=== PATIENT | male | born 1940 | race African-American/Black ===

== ENCOUNTER 2017-08-13 20:27 | Emergency (ER) | payer MEDICARE, OTHER ==
[~2017-08-13 20:27] MED LIST: ASPI81TA23 PO; CHLO25TA2 PO; DICL1GEL7 TOPICAL; LOSA100T PO; METO1TAB9 PO; TRIA.1%T TOPICAL; TRIAM.1%T TOPICAL; VIAG100T PO
[2017-08-13 20:37] VITALS: BP 148/83; PULSE 72; RESP 20; TEMP 98.3; O2SAT 97
[2017-08-13] MEDS ORDERED: FLUORESCEIN SOD 1 MG STRIP LEFT EYE ONE (21:30)
[2017-08-13] MEDS ORDERED: PROPARACAINE HCL 0.5% OPHT SOLN 15 ML BTL LEFT EYE ONE (21:30)
--- NOTE | 2017-08-13 21:35 | PD ---
HPI Chief Complaint: Foreign Body Time Seen by Provider: 21:33 Travel History International Travel<30 days: No Contact w/Intl Traveler<30days: No Traveled to known affect area: No History of Present Illness HPI 76-year-old male patient with no significant past medical issues, presents to the ER today because he states that he was working on his fence today when he felt something fly into his left eye. He has a foreign body sensation in the left eye since then. He denies any vision changes or any other issues. Modifying Factors: None Associated Signs & Symptoms: Left eye foreign body sensation Risk Factors: None PFSH Past Medical History Diminished Hearing: No Hypertension: Yes Tetanus Vaccination: < 5 Years Influenza Vaccination: No Past Surgical History Abdominal Surgery: Yes (BOWELL RESECTION, HERNIA, ) Social History Alcohol Use: Yes (daily beer, couple shots day) Tobacco Use: No (weed) Substance Use: No Allergies-Medications (Allergen,Severity, Reaction): Coded Allergies: No Known Allergies (Unverified Adverse Reaction, Unknown, 08/13/17) Reported Meds & Prescriptions Reported Meds & Active Scripts Active Chlorthalidone 25 Mg Tab 25 Mg PO DAILY Losartan (Losartan Potassium) 100 Mg Tab 100 Mg PO DAILY Metoprolol Succinate ER 24 HR (Metoprolol Succinate) 50 Mg Tab 50 Mg PO DAILY Viagra (Sildenafil Citrate) 100 Mg Tab 100 Mg PO DAILY PRN Diclofenac Topical 1% Gel 1 Applic TOPICAL QID Reported Triamcinolone Topical (Triamcinolone Acetonide) 0.1% Cream 1 Applic TOPICAL ONCE Aspirin EC (Aspirin) 81 Mg Tabdr 81 Mg PO DAILY Review of Systems Except as stated in HPI: all other systems reviewed are Neg Physical Exam Narrative GENERAL: Well-nourished, well-developed well-developed elderly -[place] male patient in mild distress awake and oriented 3.. SKIN: Focused skin assessment warm/dry. HEAD: Normocephalic. EYES: No scleral icterus. No injection or drainage. Fluorescein exam was done which did not show any signs of corneal abrasion or obvious foreign body. Eyelid was flipped over using Q-tip and did not show any signs of obvious foreign body. NECK: Supple, trachea midline. No JVD or lymphadenopathy. Data Data Last Documented VS Vital Signs Date Time Temp Pulse Resp B/P (MAP) Pulse Ox O2 Delivery O2 Flow Rate FiO2 08/13/17 20:37 98.3 72 20 148/83 (104) 97 Orders Orders Proparacaine 0.5% Opth Soln (Alcaine 0.5 (08/13/17 21:30) Fluorescein Strip (Rmufe-T-Aboifi A.T.) (08/13/17 21:30) MDM Medical Decision Making Medical Screen Exam Complete: Yes Emergency Medical Condition: Yes Medical Record Reviewed: Yes Differential Diagnosis Corneal abrasion versus foreign body in the left eye Narrative Course I do not see any signs of foreign bodies or obvious corneal abrasions at this point. Plan would be to release the patient with antibiotics for the IN follow- up to ophthalmology. Return for any worsening in pain or new symptoms as needed. The plan has been discussed with the patient and he states understanding. Diagnosis Primary Impression: Corneal injury of left eye Referrals: Jackeline Hood MD Med/Other Pt SpecificInfo: Prescription(s) given Scripts Sulfacetamide Opth Drops (Bleph-10 Opth Drops) 10 % Soln 1 DROP LEFT EYE Q2H for Infection, #1 BOTTLE 0 Refills Prov: Merced Alan MD 08/13/17 Disposition: 01 DISCHARGE HOME Condition: Stable Merced Alan MD August 13, 2017 21:35
[2017-08-13] MEDS ORDERED: SULF1SOL4 LEFT EYE (21:41)
== END 2017-08-13 22:28 | disposition home or self-care (01) ==
LOC: PHEFT 20:27
DX: S05.92XA Unspecified injury of left eye and orbit, initial encounter (principal); I10 Essential (primary) hypertension; W22.8XXA Striking against or struck by other objects, initial encounter; Z79.82 Long term (current) use of aspirin; Z79.899 Other long term (current) drug therapy
CPT/HCPCS: 99283

== ENCOUNTER 2017-09-01 16:28 | Emergency (ER) | payer MEDICARE, OTHER ==
[~2017-09-01] VITALS: Ht 185.4 cm; Wt 82.0 kg
[~2017-09-01 16:28] MED LIST changes: +SULF1SOL4 LEFT EYE; -TRIAM.1%T TOPICAL
[2017-09-01 16:32] VITALS: BP 181/101; PULSE 84; RESP 18; TEMP 98.9; O2SAT 99
[2017-09-01] MEDS ORDERED: CYCL5TAB PO (16:47)
[2017-09-01] MEDS ORDERED: NAPR500 PO (16:47)
--- NOTE | 2017-09-01 16:53 | PD ---
HPI Chief Complaint: Pain: Acute or Chronic Time Seen by Provider: 16:46 Travel History International Travel<30 days: No Contact w/Intl Traveler<30days: No Traveled to known affect area: No History of Present Illness HPI 77-year-old -Slov[place] male presents emergency department with several day history of lower back and upper back and shoulder stiffness and pain. Patient states he scrubbed some rugs in his home 3 days ago, requiring him to over extend his shoulders and back, which he feels is the causative agent. Patient now has generalized aches and pains and stiffness in both shoulders and lower back. He denies radicular pain, neck pain, central spine pain, or pain into either lower extremity. Patient has been using topical diclofenac ointment with some relief. He is here as his pain is just not improving. Pain is currently about a 7 out of 10. Currently his left shoulder is worse than the right. He has no difficulty ambulating. He states it has been bothering him in the evening. He has no known drug allergies. PFSH Past Medical History Diminished Hearing: No Hypertension: Yes Tetanus Vaccination: < 5 Years Influenza Vaccination: No Past Surgical History Abdominal Surgery: Yes (BOWELL RESECTION, HERNIA, ) Social History Alcohol Use: Yes (daily beer, couple shots day) Tobacco Use: No (weed) Substance Use: No Allergies-Medications (Allergen,Severity, Reaction): Coded Allergies: No Known Allergies (Unverified Adverse Reaction, Unknown, 09/01/17) Reported Meds & Prescriptions Reported Meds & Active Scripts Active Flexeril (Cyclobenzaprine HCl) 5 Mg Tab 5 Mg PO TID 10 Days Naprosyn (Naproxen) 500 Mg Tab 500 Mg PO BID 10 Days Chlorthalidone 25 Mg Tab 25 Mg PO DAILY Losartan (Losartan Potassium) 100 Mg Tab 100 Mg PO DAILY Metoprolol Succinate ER 24 HR (Metoprolol Succinate) 50 Mg Tab 50 Mg PO DAILY Diclofenac Topical 1% Gel 1 Applic TOPICAL QID Review of Systems Except as stated in HPI: all other systems reviewed are Neg General / Constitutional: No: Fever Eyes: No: Visual changes HENT: No: Headaches Cardiovascular: No: Chest Pain or Discomfort Respiratory: No: Shortness of Breath Gastrointestinal: No: Abdominal Pain Genitourinary: No: Dysuria Musculoskeletal: Positive: Myalgias, Limited ROM, Pain Skin: No Rash Neurologic: No: Weakness Psychiatric: No: Depression Endocrine: No: Polydipsia Hematologic/Lymphatic: No: Easy Bruising Physical Exam Narrative GENERAL: Patient appears in no obvious distress. SKIN: Warm and dry. Normal color. Normal turgor. No rash HEAD: Atraumatic. Normocephalic. EYES: Pupils equal and round. No scleral icterus. No injection or drainage. ENT: No nasal bleeding or discharge. Mucous membranes pink and moist. Pharynx is clear. Airways patent. NECK: Trachea midline. No bony tenderness or step-off. Range of motion is supple and without tenderness. CARDIOVASCULAR: Regular rate and rhythm. RESPIRATORY: No accessory muscle use. Clear to auscultation. Breath sounds equal bilaterally. GASTROINTESTINAL: Abdomen soft, non-tender, nondistended. Hepatic and splenic margins not palpable. MUSCULOSKELETAL: Extremities without clubbing, cyanosis, or edema. No obvious deformities. Patient is full range of motion in upper and lower extremities without signs of radiculopathy or impingement. Patient has soft tissue tenderness along the upper trapezius and subscapularis muscles bilaterally more on the left than the right. He also has some spasm and tenderness in the lumbar paraspinous region bilaterally. He has no point tenderness along the spine. He has no radicular symptoms or signs. NEUROLOGICAL: Awake and alert. No obvious cranial nerve deficits. Motor grossly within normal limits. Five out of 5 muscle strength in the arms and legs. Normal speech. PSYCHIATRIC: Appropriate mood and affect; insight and judgment normal. Data Data Last Documented VS Vital Signs Date Time Temp Pulse Resp B/P (MAP) Pulse Ox O2 Delivery O2 Flow Rate FiO2 09/01/17 16:32 98.9 84 18 181/101 (127) 99 MDM Medical Decision Making Medical Screen Exam Complete: Yes Emergency Medical Condition: Yes Differential Diagnosis Upper back strain. Lumbar strain. Muscle spasm. Narrative Course Radiographic imaging is not felt warranted based on my history and physical. Patient will be placed on Naprosyn 500 mg twice daily for the next 10 days. He should take this with food. Patient also given Flexeril 5 mg which he can take up to 3 times daily as needed for muscle spasm. Patient is recommended to use heat for 20 minutes followed by ice and gentle stretching as discussed Patient should follow-up with his primary care physician or return to the emergency department if symptoms worsen as needed. Diagnosis Primary Impression: Upper back strain Qualified Codes: S29.012A - Strain of muscle and tendon of back wall of thorax , initial encounter Additional Impression: Strain of lumbar paraspinal muscle Qualified Codes: S39.012A - Strain of muscle, fascia and tendon of lower back , initial encounter Referrals: Primary Care Physician Patient Instructions: General Instructions, Lower Back Exercises (ED), Upper Back Exercises (GEN) Additional Instructions: Radiographic imaging is not felt warranted based on my history and physical. Patient will be placed on Naprosyn 500 mg twice daily for the next 10 days. He should take this with food. Patient also given Flexeril 5 mg which he can take up to 3 times daily as needed for muscle spasm. Patient is recommended to use heat for 20 minutes followed by ice and gentle stretching as discussed Patient should follow-up with his primary care physician or return to the emergency department if symptoms worsen as needed. Med/Other Pt SpecificInfo: Prescription(s) given Scripts Cyclobenzaprine (Flexeril) 5 Mg Tab 5 MG PO TID for Muscle Spasm for 10 Days, #30 TAB 0 Refills Prov: Billy Duarte MD 09/01/17 Naproxen (Naprosyn) 500 Mg Tab 500 MG PO BID for 10 Days, #20 TAB 0 Refills Prov: Billy Duarte MD 09/01/17 Disposition: 01 DISCHARGE HOME Condition: Stable Nathaniel Minor September 01, 2017 16:53
== END 2017-09-01 17:12 | disposition home or self-care (01) ==
LOC: NEPK 16:28
DX: S29.012A Strain of muscle and tendon of back wall of thorax, initial encounter (principal); S39.012A Strain of muscle, fascia and tendon of lower back, initial encounter; X50.9XXA Other and unspecified overexertion or strenuous movements or postures, initial encounter; Y93.E5 Activity, floor mopping and cleaning; Y92.009 Unspecified place in unspecified non-institutional (private) residence as the place of occurrence of the external cause
CPT/HCPCS: 99283

== ENCOUNTER 2017-09-26 20:42 | Emergency (ER) | payer MEDICARE, OTHER, BC ==
[~2017-09-26] VITALS: Ht 182.9 cm; Wt 81.4 kg
[~2017-09-26 20:42] MED LIST changes: -ASPI81TA23 PO; +CYCL5TAB PO; +NAPR500 PO; -SULF1SOL4 LEFT EYE; -TRIA.1%T TOPICAL; -VIAG100T PO
[2017-09-26 21:11] VITALS: BP 145/95; PULSE 66; RESP 18; TEMP 98.6; O2SAT 99
[2017-09-26] MEDS ORDERED: NEOM1SOL7 EACH EAR (21:26)
--- NOTE | 2017-09-26 21:27 | PD ---
HPI Chief Complaint: ENT Complaint Time Seen by Provider: 21:01 Travel History International Travel<30 days: No Contact w/Intl Traveler<30days: No Traveled to known affect area: No History of Present Illness HPI Patient presents with complaints of left ear pain for approximate 2-3 days. Pain 3 out of 10. States he was evaluated at the [facility] and diagnosed with bilateral cerumen impaction. He has been using earwax softener drops with little improvement. Reports decreased hearing. Aggravated with manipulation. Relieved with rest. States that his ear began to hurt 2-3 days ago. Denies any nausea vomiting diarrhea or fever. Using Motrin or Tylenol for pain. Denies any new chest pain shortness of breath urinary or bowel symptoms. States he scheduled for ear irrigation at the NH in about a week PFSH Past Medical History Cardiovascular Problems: Yes (HTN) Diminished Hearing: Yes (hearing aids) Hypertension: Yes Tetanus Vaccination: < 5 Years Influenza Vaccination: Yes ?: Not Past Surgical History Abdominal Surgery: Yes (BOWELL RESECTION, HERNIA, ) Appendectomy: Yes Social History Alcohol Use: Yes (daily beer, couple shots day) Tobacco Use: No Substance Use: Yes (marijuana daily) Allergies-Medications (Allergen,Severity, Reaction): Coded Allergies: No Known Allergies (Verified Adverse Reaction, Unknown, 09/26/17) Reported Meds & Prescriptions Reported Meds & Active Scripts Active Chlorthalidone 25 Mg Tab 25 Mg PO DAILY Losartan (Losartan Potassium) 100 Mg Tab 100 Mg PO DAILY Metoprolol Succinate ER 24 HR (Metoprolol Succinate) 50 Mg Tab 50 Mg PO DAILY Review of Systems HENT: Positive: Ear Discharge, Earache Physical Exam Narrative GENERAL: Well-nourished, well-developed patient. SKIN: Focused skin assessment warm/dry. HEAD: Normocephalic. EYES: No scleral icterus. No injection or drainage. Right external canal with continued cerumen impaction Left external canal erythematous and edematous with mild drainage as well as cerumen difficulty visualizing tympanic membrane NECK: Supple, trachea midline. No JVD or lymphadenopathy. Data Data Last Documented VS Vital Signs Date Time Temp Pulse Resp B/P (MAP) Pulse Ox O2 Delivery O2 Flow Rate FiO2 09/26/17 21:11 98.6 66 18 145/95 (112) 99 MDM Medical Decision Making Medical Screen Exam Complete: Yes Emergency Medical Condition: Yes Differential Diagnosis Otitis externa, otitis media, cerumen impaction Narrative Course Assessment plan discussed with patient at bedside. Diagnosis Primary Impression: Otitis externa Qualified Codes: H60.502 - Unspecified acute noninfective otitis externa, left ear Patient Instructions: General Instructions Additional Instructions: Motrin or Tylenol for pain, continue to use earwax softener for the right ear, encouraged eardrops as prescribed. Follow-up with PCP. Return to the emergency room with any onset of new symptoms. Med/Other Pt SpecificInfo: Prescription(s) given Scripts Qlhvmcye-Fgijypkyb-CI Otic Drops (Wpiquqke-Ktmlyjldo-WD Otic Drops) 3.5-10,000- 1 Mg-Units-% Soln 4 DROP EACH EAR QID for Infection for 7 Days, BOTTLE 0 Refills Prov: Sagar White MD 09/26/17 Disposition: 01 DISCHARGE HOME Condition: Good Sagar White MD Sep 26, 2017 21:27
== END 2017-09-26 21:40 | disposition home or self-care (01) ==
LOC: PHEFT 20:42
DX: H60.502 Unspecified acute noninfective otitis externa, left ear (principal); H92.12 Otorrhea, left ear; H61.23 Impacted cerumen, bilateral; I10 Essential (primary) hypertension
CPT/HCPCS: 99283